=== PATIENT | male | born 1990 | race Two or more races ===

== ENCOUNTER 2024-02-16 12:58 | Emergency (ER) | payer MEDICAID ==
[~2024-02-16] VITALS: Ht 170.2 cm; Wt 77.1 kg
[2024-02-16 13:42] VITALS: BP 114/69; TEMP 97.9; O2SAT 99
[2024-02-16] MEDS ORDERED: TOBR5DRO2 RIGHTEYE (14:12)
== END 2024-02-16 14:24 | disposition home or self-care (01) ==
LOC: ER 13:25
DX: S05.01XA Injury of conjunctiva and corneal abrasion without foreign body, right eye, initial encounter (principal); W22.8XXA Striking against or struck by other objects, initial encounter; Y93.01 Activity, walking, marching and hiking; Y92.89 Other specified places as the place of occurrence of the external cause; Y99.8 Other external cause status